=== PATIENT | male | born 1960 | race Caucasian/White ===

== ENCOUNTER → 2018-09-26 | Outpatient (CLI) | payer BC | LOC: RAD 08:54 | DX: N40.0 Benign prostatic hyperplasia without lower urinary tract symptoms (principal); R97.20 Elevated prostate specific antigen [PSA]; R31.0 Gross hematuria | CPT/HCPCS: Q9967 ==

== ENCOUNTER → 2019-09-29 | Outpatient (CLI) | payer BC | LOC: RAD 08:47 | DX: R31.0 Gross hematuria (principal) ==